=== PATIENT | female | born 1970 | race Caucasian/White ===

== ENCOUNTER 2018-11-24 22:15 | Inpatient (IN) ==
[2018-11-25] MEDS ORDERED: PANTOPRAZOLE 40 MG VIAL IV STA (00:52)
[2018-11-25] MEDS ORDERED: ONDANSETRON 4 MG/2 ML VIAL IV STA (00:52)
[2018-11-25] MEDS ORDERED: ALUM/MAG/SIMETH/LIDO VISC 1:1 30 ML BOTTLE PO STA (00:52)
[2018-11-25] MEDS ORDERED: HYDROmorphone 2 MG/1 ML VIAL IV STA (00:52)
[2018-11-25] MEDS ORDERED: SODIUM CHLORIDE 0.9% 1,000 ML IV STA (00:52)
[2018-11-25 02:10] LABS: Basophils # 0.1 10*3/uL (0.0-0.2); Basophils % 0.5 % (0.0-0.8); Eosinophils % 0.3 % (0.00-10.9); Hemoglobin 17.6 GM/DL (12.0-16.0); Immature Granulocytes % 0.6 %; Immature Granulocytes Absolute 0.09 #; Lymphocytes # 1.2 10*3/uL (1.4-4.0); Lymphocytes % 8.3 % (21.3-54.2); Mean Corpuscular HGB Conc 33.2 GM/DL (32-36); Mean Corpuscular Volume 87.3 FL (87-102); Mean Platelet Volume 11.3 FL (9.6-12.0); Monocytes % 5.3 % (1.7-12.7); Platelet Count 262 T/CUMM (130-400); Red Blood Count 6.07 MC/CUMM (3.8-5.5); Red Cell Distribution Width 14.4 % (9.3-17.3)
[2018-11-25 02:40] LABS: Alanine Aminotransferase 28 U/L (13-56); Albumin 3.6 G/DL (3.4-5.0); Alkaline Phosphatase 121 U/L (45-117); Amylase 153 U/L (25-115); Aspartate Amino Transferase 22 U/L (0-37); Blood Urea Nitrogen 16 MG/DL (7-18); Calcium 9.2 MG/DL (8.5-10.1); Estimated Glom Filtration Rate 96 ML/MIN; Glucose 134 MG/DL (74-106); Osmolality,Calculated 272.1 MOS/KG (273-304); Total Protein 8.3 G/DL (6.4-8.3)
[2018-11-25] MEDS ORDERED: HYDROmorphone 2 MG/1 ML VIAL IV ONE (02:59)
[2018-11-25] MEDS ORDERED: PIPERACILLIN/TAZOBACTAM 3,375 MG in SODIUM CHLORIDE 0.9% 100 ML IV STA (03:03)
[2018-11-25] MEDS ORDERED: PIPERACILLIN/TAZOBACTAM 3,375 MG VIAL IV ONE (05:59)
[2018-11-25] MEDS ORDERED: SODIUM CHLORIDE 0.9% 100 ML IV ONE (06:03)
[2018-11-25] MEDS: MORPHINE 4 MG/1 ML VIAL IV PRN ×4 (06:24→20:27)
[2018-11-25] MEDS: cefTRIAXone 2,000 MG in SYRINGE 1 EACH IV SCH (07:34)
[2018-11-25] MEDS: metroNIDAZOLE INJ 500 MG in PREMIX 1 EACH IV SCH ×3 (07:37→22:06)
[2018-11-25] MEDS ORDERED: FAMOTIDINE 20 MG/2 ML VIAL IV SCH (09:00)
[2018-11-25] MEDS: SODIUM CHLOR 0.9% KCL 40 MEQ 40 MEQ/1,000 ML BAG IV SCH ×2 (09:02→23:23)
[2018-11-25] MEDS: ENOXAPARIN 40 MG/0.4 ML SYRINGE SUBCUT SCH (09:03)
[2018-11-25] MEDS ORDERED: hydrALAZINE 20 MG/1 ML VIAL IV PRN (17:07)
[2018-11-25] MEDS: amLODIPine 5 MG TABLET PO SCH (17:21)
[2018-11-25] MEDS: ONDANSETRON 4 MG/2 ML VIAL IV PRN ×2 (17:22→20:25)
[2018-11-25] MEDS: PREGABALIN 75 MG CAPSULE PO SCH (20:22)
[2018-11-25] MEDS: ZALEPLON 5 MG CAPSULE PO SCH (20:22)
[2018-11-26] MEDS: ONDANSETRON 4 MG/2 ML VIAL IV PRN ×2 (01:28→05:27)
[2018-11-26] MEDS: MORPHINE 4 MG/1 ML VIAL IV PRN ×5 (01:29→20:38)
[2018-11-26 04:48] LABS: Basophils % 0.4 % (0.0-0.8); Eosinophils # 0.1 10*3/uL (0.0-0.87); Hematocrit 44.7 VOL% (35.7-47.0); Hemoglobin 14.7 GM/DL (12.0-16.0); Immature Granulocytes % 1.2 %; Immature Granulocytes Absolute 0.13 #; Lymphocytes # 2.8 10*3/uL (1.4-4.0); Lymphocytes % 25.1 % (21.3-54.2); Mean Corpuscular HGB Conc 32.9 GM/DL (32-36); Monocytes % 7.9 % (1.7-12.7); Neutrophils % 64.4 % (38.7-73.9); Platelet Count 206 T/CUMM (130-400); Red Blood Count 5.08 MC/CUMM (3.8-5.5); Red Cell Distribution Width 14.2 % (9.3-17.3); White Blood Count 11.3 T/CUMM (4-12)
[2018-11-26 05:17] LABS: Calcium 7.7 MG/DL (8.5-10.1); Osmolality,Calculated 277.5 MOS/KG (273-304)
[2018-11-26] MEDS: cefTRIAXone 2,000 MG in SYRINGE 1 EACH IV SCH (05:27)
[2018-11-26 05:29] LABS: Apearance,Urine CLEAR (Clear); Bilirubin,Urine Negative (Negative); Blood, Urine Negative (Negative); Glucose,Urine (UA) Negative (Negative); Ketones,Urine 5 mg/dL (Negative); Mucus,Urine Occasional /LPF (Occasional); Nitrite,Urine Negative (Negative); Protein,Urine Negative; RBC,Urine 1 /HPF (0-4); Squamous Epithelial Cell,Urine Occasional /HPF (0-10); Urine Color Yellow (Yellow); Urine Specific Gravity 1.017 (1.001-1.035); Urine Urobilinogen < 2.0 EU/DL (0.2-1.0); WBC,Urine 1 /HPF (0-6)
[2018-11-26] MEDS: metroNIDAZOLE INJ 500 MG in PREMIX 1 EACH IV SCH ×3 (05:55→22:09)
[2018-11-26] MEDS: ENOXAPARIN 40 MG/0.4 ML SYRINGE SUBCUT SCH (09:54)
[2018-11-26] MEDS: PREGABALIN 75 MG CAPSULE PO SCH ×2 (09:55→20:38)
[2018-11-26] MEDS: amLODIPine 5 MG TABLET PO SCH (09:55)
[2018-11-26] MEDS: ATENOLOL 25 MG TABLET PO SCH (09:55)
[2018-11-26] MEDS: POTASSIUM CHLORIDE 20 MEQ TABLET PO PRN ×3 (10:09→14:35)
[2018-11-26] MEDS: SODIUM CHLOR 0.9% KCL 40 MEQ 40 MEQ/1,000 ML BAG IV SCH ×3 (10:16→22:07)
[2018-11-26] MEDS: ZALEPLON 5 MG CAPSULE PO SCH (20:38)
[2018-11-27] MEDS: MORPHINE 4 MG/1 ML VIAL IV PRN ×6 (00:41→22:27)
[2018-11-27 05:21] LABS: Basophils % 0.6 % (0.0-0.8); Eosinophils # 0.3 10*3/uL (0.0-0.87); Eosinophils % 4.4 % (0.00-10.9); Hematocrit 45.5 VOL% (35.7-47.0); Hemoglobin 14.3 GM/DL (12.0-16.0); Immature Granulocytes % 0.5 %; Immature Granulocytes Absolute 0.03 #; Lymphocytes # 2.4 10*3/uL (1.4-4.0); Lymphocytes % 39.1 % (21.3-54.2); Mean Corpuscular HGB Conc 31.4 GM/DL (32-36); Mean Corpuscular Volume 90.8 FL (87-102); Mean Platelet Volume 11.6 FL (9.6-12.0); Monocytes % 6.2 % (1.7-12.7); Neutrophils % 49.2 % (38.7-73.9); Platelet Count 179 T/CUMM (130-400); Red Blood Count 5.01 MC/CUMM (3.8-5.5); Red Cell Distribution Width 14.5 % (9.3-17.3); White Blood Count 6.2 T/CUMM (4-12)
[2018-11-27 05:36] LABS: Calcium 7.7 MG/DL (8.5-10.1)
[2018-11-27] MEDS: metroNIDAZOLE INJ 500 MG in PREMIX 1 EACH IV SCH ×3 (06:07→21:41)
[2018-11-27] MEDS: cefTRIAXone 2,000 MG in SYRINGE 1 EACH IV SCH (06:08)
[2018-11-27] MEDS: SODIUM CHLOR 0.9% KCL 40 MEQ 40 MEQ/1,000 ML BAG IV SCH ×2 (09:13→17:06)
[2018-11-27] MEDS: amLODIPine 5 MG TABLET PO SCH (09:15)
[2018-11-27] MEDS: ENOXAPARIN 40 MG/0.4 ML SYRINGE SUBCUT SCH (09:15)
[2018-11-27] MEDS: ATENOLOL 25 MG TABLET PO SCH (09:15)
[2018-11-27] MEDS: PREGABALIN 75 MG CAPSULE PO SCH ×2 (09:15→20:08)
[2018-11-27] MEDS: POTASSIUM CHLORIDE 20 MEQ TABLET PO PRN (15:54)
[2018-11-27] MEDS: NICOTINE 14 MG/24 HR PATCH TRANSDERM SCH (15:54)
[2018-11-27] MEDS: ONDANSETRON 4 MG/2 ML VIAL IV PRN (15:55)
[2018-11-27] MEDS: ZALEPLON 5 MG CAPSULE PO SCH (20:09)
[2018-11-27] MEDS ORDERED: PANTOPRAZOLE 40 MG VIAL IV ONE (22:37)
[2018-11-28] MEDS: MORPHINE 4 MG/1 ML VIAL IV PRN ×3 (03:15→12:09)
[2018-11-28] MEDS: SODIUM CHLOR 0.9% KCL 40 MEQ 40 MEQ/1,000 ML BAG IV SCH ×2 (04:15→14:21)
[2018-11-28 05:09] LABS: Basophils % 0.5 % (0.0-0.8); Eosinophils # 0.3 10*3/uL (0.0-0.87); Eosinophils % 4.1 % (0.00-10.9); Hematocrit 45.6 VOL% (35.7-47.0); Hemoglobin 14.7 GM/DL (12.0-16.0); Immature Granulocytes % 0.3 %; Immature Granulocytes Absolute 0.02 #; Lymphocytes # 2.5 10*3/uL (1.4-4.0); Lymphocytes % 34.7 % (21.3-54.2); Mean Corpuscular HGB Conc 32.2 GM/DL (32-36); Mean Corpuscular Volume 89.4 FL (87-102); Mean Platelet Volume 11.7 FL (9.6-12.0); Monocytes % 6.6 % (1.7-12.7); Neutrophils % 53.8 % (38.7-73.9); Platelet Count 169 T/CUMM (130-400); Red Cell Distribution Width 14.4 % (9.3-17.3); White Blood Count 7.3 T/CUMM (4-12)
[2018-11-28 05:18] LABS: Calcium 8.3 MG/DL (8.5-10.1); Osmolality,Calculated 283.8 MOS/KG (273-304)
[2018-11-28] MEDS: metroNIDAZOLE INJ 500 MG in PREMIX 1 EACH IV SCH ×2 (06:24→14:21)
[2018-11-28] MEDS: cefTRIAXone 2,000 MG in SYRINGE 1 EACH IV SCH (06:25)
[2018-11-28] MEDS: NICOTINE 14 MG/24 HR PATCH TRANSDERM SCH (08:48)
[2018-11-28] MEDS: amLODIPine 5 MG TABLET PO SCH (08:48)
[2018-11-28] MEDS: PREGABALIN 75 MG CAPSULE PO SCH (08:48)
[2018-11-28] MEDS: ATENOLOL 25 MG TABLET PO SCH (08:48)
[2018-11-28] MEDS: ENOXAPARIN 40 MG/0.4 ML SYRINGE SUBCUT SCH (08:48)
[2018-11-28] MEDS ORDERED: FAMOTIDINE 20 MG/2 ML VIAL IV SCH (09:00)
[2018-11-28 13:25] VITALS: BP 130/75
== END 2018-11-28 14:50 | disposition home or self-care (01) | DRG 392 ==
LOC: N.ED 22:15 → N.EDINP 11-25 05:26 → SUATTDRO 11-25 05:26 → N.3E 11-25 11:36
PROVIDERS: ADMIT Internal Medicine; ATTEND Internal Medicine

== ENCOUNTER 2019-02-19 10:40 | Inpatient (IN) ==
[2019-02-19 15:20] LABS: Basophils # 0.1 10*3/uL (0.0-0.2); Basophils % 0.2 % (0.0-0.8); Eosinophils % 0.1 % (0.00-10.9); Hematocrit 41.9 VOL% (35.7-47.0); Hemoglobin 13.6 GM/DL (12.0-16.0); Immature Granulocytes % 1.2 %; Immature Granulocytes Absolute 0.33 #; Lymphocytes # 1.8 10*3/uL (1.4-4.0); Lymphocytes % 6.4 % (21.3-54.2); Mean Corpuscular HGB Conc 32.5 GM/DL (32-36); Mean Corpuscular Volume 86.4 FL (87-102); Mean Platelet Volume 10.7 FL (9.6-12.0); Monocytes % 3.6 % (1.7-12.7); Neutrophils % 88.5 % (38.7-73.9); Platelet Count 196 T/CUMM (130-400); Red Blood Count 4.85 MC/CUMM (3.8-5.5); Red Cell Distribution Width 16.8 % (9.3-17.3); White Blood Count 28.1 T/CUMM (4-12)
[2019-02-19 15:45] LABS: Albumin 3.3 G/DL (3.4-5.0); Bilirubin,Total 0.6 MG/DL (0.2-1.0); Calcium 8.9 MG/DL (8.5-10.1); Osmolality,Calculated 273.7 MOS/KG (273-304); Total Protein 7.2 G/DL (6.4-8.3)
[2019-02-19 15:57] LABS: Band Neutrophils 4 % (0-10); Lymphocytes 12 % (20-55); Segmented Neutrophils 81 % (50-85); Total Cells Counted 100
[2019-02-19 15:58] LABS: Platelet Estimate Normal
[2019-02-19] MEDS ORDERED: SODIUM CHLORIDE 0.9% 1,000 ML IV STA (16:13)
[2019-02-19] MEDS ORDERED: guaiFENesin/DM ER 600-30 MG TABLET PO PRN (19:42)
[2019-02-19] MEDS ORDERED: ZALEPLON 5 MG CAPSULE PO PRN (19:42)
[2019-02-19] MEDS ORDERED: ACETAMINOPHEN 325 MG TABLET PO PRN (19:42)
[2019-02-19] MEDS ORDERED: DOCUSATE SODIUM 100 MG CAPSULE PO PRN (19:42)
[2019-02-19] MEDS ORDERED: ONDANSETRON 4 MG/2 ML VIAL IV PRN (19:42)
[2019-02-19] MEDS ORDERED: ALBUTEROL 2.5 MG/3 ML NEB RESP TX PRN (19:46)
[2019-02-19] MEDS: PIPERACILLIN/TAZOBACTAM 3,375 MG in SODIUM CHLORIDE 0.9% 100 ML IV SCH (20:29)
[2019-02-19] MEDS ORDERED: SODIUM CHLORIDE 0.9% 1,000 ML IV ONE (21:00)
[2019-02-19] MEDS ORDERED: ENOXAPARIN 40 MG/0.4 ML SYRINGE SUBCUT SCH (21:00)
[2019-02-19] MEDS ORDERED: AZITHROMYCIN INJ 500 MG in SODIUM CHLORIDE 0.9% 250 ML IV SCH (21:00)
[2019-02-19] MEDS: SODIUM CHLORIDE 0.9% 1,000 ML IV SCH (21:04)
[2019-02-20] MEDS ORDERED: INFLUENZA VIRUS VACCINE 0.5 ML SYRINGE IM ONE (00:19)
[2019-02-20] MEDS ORDERED: PNEUMOCOCCAL VACCINE (13 VALENT) 0.5 ML SYRINGE IM ONE (00:19)
[2019-02-20] MEDS: ALBUTEROL 2.5 MG/3 ML NEB RESP TX SCH ×4 (00:36→11:13)
[2019-02-20] MEDS: MORPHINE 4 MG/1 ML VIAL IV PRN ×2 (00:44→04:58)
[2019-02-20] MEDS: VANCOMYCIN INJ 1,250 MG in SODIUM CHLORIDE 0.9% 250 ML IV SCH ×2 (00:48→13:15)
[2019-02-20] MEDS: PIPERACILLIN/TAZOBACTAM 3,375 MG in SODIUM CHLORIDE 0.9% 100 ML IV SCH ×2 (04:01→13:15)
[2019-02-20 06:08] LABS: Basophils % 0.3 % (0.0-0.8); Eosinophils # 0.1 10*3/uL (0.0-0.87); Hematocrit 38.5 VOL% (35.7-47.0); Hemoglobin 12.1 GM/DL (12.0-16.0); Immature Granulocytes % 0.3 %; Immature Granulocytes Absolute 0.04 #; Lymphocytes # 1.9 10*3/uL (1.4-4.0); Lymphocytes % 16.6 % (21.3-54.2); Mean Corpuscular HGB Conc 31.4 GM/DL (32-36); Mean Corpuscular Volume 88.3 FL (87-102); Mean Platelet Volume 11.6 FL (9.6-12.0); Monocytes % 3.3 % (1.7-12.7); Neutrophils % 78.5 % (38.7-73.9); Platelet Count 149 T/CUMM (130-400); Red Blood Count 4.36 MC/CUMM (3.8-5.5); Red Cell Distribution Width 16.9 % (9.3-17.3); White Blood Count 11.7 T/CUMM (4-12)
[2019-02-20 06:33] LABS: Albumin 2.7 G/DL (3.4-5.0); Bilirubin,Total 0.5 MG/DL (0.2-1.0); Osmolality,Calculated 284.8 MOS/KG (273-304); Total Protein 6.2 G/DL (6.4-8.3)
[2019-02-20] MEDS: SODIUM CHLORIDE 0.9% 1,000 ML IV SCH (07:28)
[2019-02-20] MEDS ORDERED: PANTOPRAZOLE 40 MG TABLET PO SCH (09:00)
[2019-02-20] MEDS ORDERED: FUROSEMIDE 40 MG/4 ML VIAL IV ONE (10:42)
[2019-02-20] MEDS ORDERED: methylPREDNISolone SOD SUC 40 MG/1 ML VIAL IV SCH (11:30)
[2019-02-20] MEDS: INDOMETHACIN 25 MG CAPSULE PO SCH ×2 (12:10→12:11)
[2019-02-20 12:58] VITALS: BP 132/75
== END 2019-02-20 14:47 | disposition home or self-care (01) | DRG 190 ==
LOC: N.ED 10:40 → N.EDINP 19:42 → N.5E 22:03
PROVIDERS: ADMIT Internal Medicine; ATTEND Internal Medicine

== ENCOUNTER 2021-05-22 07:46 | Observation (INO) ==
[2021-05-22] MEDS ORDERED: ASPIRIN 325 MG TABLET PO STA (07:56)
[2021-05-22] MEDS ORDERED: SODIUM CHLORIDE 0.9% 500 ML IV STA (07:56)
[2021-05-22] MEDS ORDERED: SODIUM CHLORIDE 0.9% 1,000 ML IV STA ×2 (08:01→09:11)
[2021-05-22 08:18] LABS: Basophils # 0.1 10*3/uL (0.0-0.2); Basophils % 0.5 % (0.0-0.8); Eosinophils # 0.2 10*3/uL (0.0-0.87); Eosinophils % 1.5 % (0.00-10.9); Hematocrit 48.6 VOL% (35.7-47.0); Immature Granulocytes % 0.4 %; Immature Granulocytes Absolute 0.04 #; Lymphocytes # 2.2 10*3/uL (1.4-4.0); Lymphocytes % 20.5 % (21.3-54.2); Mean Corpuscular HGB Conc 32.9 GM/DL (32-36); Mean Corpuscular Volume 86.8 FL (87-102); Mean Platelet Volume 11.9 FL (9.6-12.0); Monocytes % 6.3 % (1.7-12.7); Neutrophils % 70.8 % (38.7-73.9); Platelet Count 183 T/CUMM (130-400); Red Cell Distribution Width 14.4 % (9.3-17.3); White Blood Count 10.8 T/CUMM (4-12)
[2021-05-22 08:33] LABS: INR 0.9; PT Patient Result 10.3 SECS (10.5-12.0)
[2021-05-22 08:39] LABS: Band Neutrophils 1 % (0-10); Eosinophils 1 % (0-10); Lymphocytes 14 % (20-55); Platelet Estimate Adequate; Segmented Neutrophils 76 % (50-85); Total Cells Counted 100
[2021-05-22 08:40] LABS: Alanine Aminotransferase 28 U/L (13-56); Albumin 3.5 G/DL (3.4-5.0); Alkaline Phosphatase 100 U/L (45-117); Aspartate Amino Transferase 16 U/L (0-37); Bilirubin,Total < 0.39 MG/DL (0.20-1.00); Blood Urea Nitrogen 15 MG/DL (7-18); Calcium 8.8 MG/DL (8.5-10.1); Carbon Dioxide 25 MMOL/L (21-32); Estimated Glom Filtration Rate 57 ML/MIN; Glucose 159 MG/DL (74-106); Osmolality,Calculated 284.3 MOS/KG (273-304); Potassium 4.3 MMOL/L (3.5-5.1); Sodium 141 MMOL/L (136-145)
[2021-05-22] MEDS ORDERED: PIPERACILLIN/TAZOBACTAM 3,375 MG in SODIUM CHLORIDE 0.9% 100 ML IV STA (09:26)
[2021-05-22] MEDS ORDERED: VANCOMYCIN INJ 1,000 MG in SODIUM CHLORIDE 0.9% 250 ML IV STA (09:26)
[2021-05-22 10:13] LABS: Bacteria,Urine Few /HPF (Few); RBC,Urine 1 /HPF (0-4); Squamous Epithelial Cell,Urine Many /HPF (0-10)
[2021-05-22 10:16] LABS: Urine Appearance Clear (Clear); Urine Color Yellow (Yellow); Urine pH 6.5 (4.5-8.0)
[2021-05-22 10:17] LABS: Barbiturates Screen,Urine Negative (Negative); Benzodiazepines Screen,Urine Negative (Negative); Bilirubin,Urine Negative (Negative); Blood, Urine Negative (Negative); Cannabinoid Screen,Urine Negative (Negative); Glucose,Urine (UA) Negative (Negative); Ketones,Urine Negative (Negative); Nitrite,Urine Negative (Negative); Opiate Screen,Urine Positive (Negative); Phencyclidine Screen,Urine Negative (Negative); Protein,Urine Trace mg/dL (Negative); Urine Specific Gravity < 1.005 (1.001-1.035); Urine Urobilinogen 0.2 eU/dL (<2.0)
[2021-05-22] MEDS ORDERED: GLUCAGON 1 MG VIAL IM PRN (11:03)
[2021-05-22] MEDS ORDERED: guaiFENesin/DM ER 600-30 MG TABLET PO PRN (11:03)
[2021-05-22] MEDS ORDERED: NICOTINE 21 MG/24 HR PATCH TRANSDERM PRN (11:03)
[2021-05-22] MEDS ORDERED: ONDANSETRON 4 MG/2 ML VIAL IV PRN (11:03)
[2021-05-22] MEDS ORDERED: DEXTROSE 10% 250 ML BAG IV PRN (11:14)
[2021-05-22] MEDS: SODIUM CHLORIDE 0.9% 1,000 ML IV SCH ×2 (11:30→19:30)
[2021-05-22 11:37] LABS: Thyroid Stimulating Hormone 5.68 uIU/ml (0.358-3.74)
[2021-05-22] MEDS ORDERED: ALBUTEROL 1.25 MG/3 ML NEB RESP TX PRN (11:39)
[2021-05-22] MEDS ORDERED: ENOXAPARIN 40 MG/0.4 ML SYRINGE SUBCUT SCH (12:00)
[2021-05-22 12:56] LABS: Free T4 (Free Thyroxine) 1.02 NG/DL (0.76-1.46)
[2021-05-22] MEDS: CHOLECALCIFEROL 1,000 UNIT TABLET PO SCH (14:02)
[2021-05-22] MEDS: oxyCODONE/ACETAMINOPHEN 5-325 MG TABLET PO PRN ×2 (15:07→21:16)
[2021-05-22] MEDS: PIPERACILLIN/TAZOBACTAM 3,375 MG in SODIUM CHLORIDE 0.9% 100 ML IV SCH (17:28)
[2021-05-22] MEDS ORDERED: traZODone 50 MG TABLET PO ONE (22:25)
[2021-05-23] MEDS: PIPERACILLIN/TAZOBACTAM 3,375 MG in SODIUM CHLORIDE 0.9% 100 ML IV SCH (01:25)
[2021-05-23] MEDS: SODIUM CHLORIDE 0.9% 1,000 ML IV SCH (03:30)
[2021-05-23] MEDS ORDERED: VANCOMYCIN INJ 1,250 MG in SODIUM CHLORIDE 0.9% 250 ML IV SCH (04:00)
[2021-05-23 04:51] LABS: Basophils % 0.6 % (0.0-0.8); Eosinophils # 0.2 10*3/uL (0.0-0.87); Eosinophils % 2.9 % (0.00-10.9); Hematocrit 43.7 VOL% (35.7-47.0); Hemoglobin 13.6 GM/DL (12.0-16.0); Immature Granulocytes % 0.2 %; Immature Granulocytes Absolute 0.01 #; Lymphocytes # 2.8 10*3/uL (1.4-4.0); Lymphocytes % 43.3 % (21.3-54.2); Mean Corpuscular HGB Conc 31.1 GM/DL (32-36); Mean Corpuscular Volume 89.4 FL (87-102); Mean Platelet Volume 12.2 FL (9.6-12.0); Monocytes % 6.3 % (1.7-12.7); Neutrophils % 46.7 % (38.7-73.9); Platelet Count 127 T/CUMM (130-400); Red Blood Count 4.89 MC/CUMM (3.8-5.5); Red Cell Distribution Width 14.3 % (9.3-17.3); White Blood Count 6.5 T/CUMM (4-12)
[2021-05-23 05:09] LABS: Risk Ratio 4.82; VLDL Cholesterol 30.8 MG/DL
[2021-05-23 05:17] LABS: Eosinophils 3 % (0-10); Lymphocytes 42 % (20-55); Segmented Neutrophils 49 % (50-85); Total Cells Counted 100
[2021-05-23] MEDS ORDERED: ROSUVASTATIN 20 MG TABLET PO SCH (09:00)
[2021-05-23] MEDS ORDERED: PANTOPRAZOLE 40 MG TABLET PO SCH (09:00)
[2021-05-23] MEDS ORDERED: ASPIRIN EC 81 MG TABLET PO SCH (09:00)
[2021-05-23] MEDS ORDERED: POLYETHYLENE GLYCOL POWDER 17 GM PACK PO PRN (09:02)
[2021-05-23] MEDS ORDERED: PREGABALIN 100 MG CAPSULE PO SCH (09:15)
[2021-05-23] MEDS: CHOLECALCIFEROL 1,000 UNIT TABLET PO SCH (10:02)
[2021-05-23 12:25] VITALS: BP 142/65
[2021-05-24] MEDS ORDERED: PANTOPRAZOLE 40 MG TABLET PO SCH (09:00)
== END 2021-05-23 15:25 | disposition home or self-care (01) ==
LOC: N.ED 07:46 → N.EDINP 07:46 → SUATTDRO 11:03 → N.EDINP 13:57 → N.TELES 14:08
PROVIDERS: ADMIT Internal Medicine; ATTEND Internal Medicine Geriatric Medicine